=== PATIENT | male | born 1990 | race Caucasian/White ===

== ENCOUNTER → 2020-01-17 | Outpatient (CLI) | payer BC ==
[~2020-01-17] MED LIST: DEPLIN-ALGAL O1 EAC1 PO
== END ==
LOC: SJCVCIMAG 14:40
DX: I49.5 Sick sinus syndrome (principal); R55 Syncope and collapse; Z95.0 Presence of cardiac pacemaker

== ENCOUNTER → 2020-01-18 | Outpatient (CLI) | payer BC, OTHER ==
[~2020-01-18] VITALS: Ht 172.7 cm; Wt 81.6 kg
[2020-01-18 08:50] VITALS: BP 120/89
[2020-01-18 09:33] LABS: ABSOLUTE NEUTROPHILS 3.4 thou/uL (1.4-8.2); BASOPHILS 0.6 % (0.0-2.0); EOSINOPHILS 5.1 % (0.0-3.0); HEMATOCRIT 46.2 % (42.0-52.0); HEMOGLOBIN 14.9 gm/dL (14.0-18.0); LYMPHOCYTES 29.2 % (24.0-44.0); MCH 28.7 pg (26.0-34.0); MCHC 32.3 g/dL (28.0-37.0); MCV 89.1 fL (80.0-100.0); MONOCYTES 9.3 % (1.0-8.0); PLATELET COUNT 156 thou/uL (150-400); POLYS 55.8 % (36.0-66.0); RBC 5.18 mil/uL (4.50-6.00); RDW 13.8 % (10.5-14.5)
[2020-01-18 09:44] LABS: APTT 31.3 Seconds (24.5-32.8); INR 1.1; PROTIME 11.3 Seconds (9.3-11.4)
[2020-01-18 09:45] LABS: CREATININE 1.1 mg/dL (0.7-1.3)
[2020-01-18 09:51] LABS: ALBUMIN 4.2 g/dL (3.4-5.0); TOTAL BILIRUBIN 0.4 mg/dL (<0.1-1.0); TOTAL PROTEIN 7.5 g/dL (6.4-8.2)
--- NOTE | 2020-01-18 16:44 | P ---
[facility] [address] PROCEDURE REPORT Name: JARETT BREWER Room #: REG [facility]#: [id number] Admission: 01/18/20 Attend Phys: Dougie Espinal MD Discharge: Date of : 88 Report #: [id number] THIS REPORT FOR: cc: ULISES Eisenberg family physician/PCP ULISES - [facility] family physician/PCP Dougie Espinal MD ~ CC: ULISES physician/PCP Dougie Espinal DATE OF SERVICE: 01/18/2020 PREOPERATIVE DIAGNOSIS: Pacemaker at end of life. POSTOPERATIVE DIAGNOSIS: Pacemaker at end of life. 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 and was found to have vasovagal syncope and underwent a dual chamber pacemaker implantation back on 10/24/2009. There he had a [employer] pacemaker connected to [employer] leads. The patient was lost to remote monitoring and had not followed up for in-clinic device checks and when he showed up in clinic he was found to be EOL. He had an echocardiogram performed yesterday showing normal LV size and function, EF 60-65%. He is here for generator exchange. ANESTHESIA: The patient underwent MAC anesthesia with no anesthesia related complications. DESCRIPTION OF PROCEDURE: The patient underwent informed consent. We discussed the details of the procedure including the risks, which include but not limited to bleeding, infection, vascular damage, need for possible lead revisions. He understood these risks and is willing to proceed. The patient was brought to EP laboratory in fasting and sedated state and prepped and draped in a sterile fashion. The patient received IV antibiotics prior to initiation of the procedure. Next, I injected lidocaine at the prior incision site, taking care not to disturb his tattoo. The chronic pocket was entered. The device was removed from the pocket and disconnected from the leads. Leads were inspected and found to be within satisfactory condition. New device was connected, tested and found to be functioning normally. The pocket was closed in 2 layers using 2-0 for the deep layer and 3-0 for the middle layer. Surgical glue was placed to the outer skin layer. The patient awoke neurologically and hemodynamically intact. No complications and no significant bleeding. The explanted pacemaker was a [employer] serial #[id number]. The [address] [address] PROCEDURE REPORT Name: JARETT BREWER Room #: REG CLI [facility]#: [id number] Admission: 01/18/20 Attend Phys: Dougie Espinal MD Discharge: Date of : 88 Report #: [id number] leads were [employer] model #188TC 52 cm, serial #[id number]. The ventricular lead was [employer] model #1088TC, 58 cm, serial #[id number]. Both leads were implanted on 10/24/2009. The newly implanted device was a [employer] model #2272, serial #[id number]. The atrial lead demonstrated P-wave of 1.3 millivolts, pacing impedance of 400 ohms, pacing threshold 0.75 volts at 0.4 milliseconds. The RV lead demonstrated R-wave greater than 12 millivolts, pacing impedance of 550 ohms, pacing threshold 0.75 volts at 0.4 milliseconds. The device was programmed to the DDD 60-130 mode. CONCLUSIONS: 1. Successful dual-chamber pacemaker generator exchange. 2. Satisfactory atrial and ventricular pacing and sensing thresholds. <ELECTRONICALLY SIGNED> By: Dougie Espinal MD 01/18/20 1644 1144 1202 Dougie Espinal MD /nt
== END | disposition home or self-care (01) ==
LOC: CATH 07:56
PROVIDERS: Internal Medicine Cardiovascular Disease
DX: Z45.010 Encounter for checking and testing of cardiac pacemaker pulse generator [battery] (principal); I49.5 Sick sinus syndrome
CPT/HCPCS: 62110; 62900; 70005